=== PATIENT | female | born 1990 | race Caucasian/White ===

== ENCOUNTER → 2018-09-03 | Outpatient (CLI) | payer SELFPAY ==
--- NOTE | 2018-09-03 13:31 | RADIOLOGY REPORT (SQ) ---
EXAM DESCRIPTION: U/S [id number] TRNABD 1GES W/ODOP COMPLETED DATE/TIME: 09/03/2018 1:12 pm REASON FOR STUDY: ENCOUNTER FOR SUPRVSN OF NORMAL , FIRST TRIMESTER Z34.81 ENCOUNTER FOR S UPRVSN OF NORMAL , FIRST TRIM COMPARISON: None. TECHNIQUE: Transabdominal static and realtime grayscale images acquired of the pelvis. Additional se lected spectral and color Doppler images recorded. All images stored on PACs. bHCG: Not available CLINICAL DATES: 05/31/2018 LIMITATIONS: None. FINDINGS: FETUS: Single Living intrauterine . ULTRASOUND EGA: 10 weeks 0 days, estimated due date 04/01/2019 ULTRASOUND KALYN: 04/01/2019 EFW: Not calculated CRL: 3.2 cm FHR: 180 beats per minute. SURVEY: Too early to evaluate AMNIOTIC FLUID: Adequate amount. PLACENTA: Not yet developed due to early gestation. SUBCHORIONIC BLEED: Yes SIZE OF BLEED: 1.4 cm in greatest diameter UTERUS: No masses. No anomalies. Uterus is 11 x 9 x 9 cm in size CERVICAL LENGTH: Closed, 3.2 cm in length. RIGHT ADNEXA: Not visualized due to adnexal bowel gas and limited acoustic window. No adnexal free fluid. No adnexal masses. LEFT ADNEXA: Normal ovary with normal vascular flow. Left ovary 3.7 x 3.1 x 2.2 cm in size. No adnexal free fluid. No adnexal masses. FREE FLUID: None. OTHER: No other significant finding. IMPRESSION: LIVING INTRAUTERINE . EGA 10 weeks 0 day Trimester of : First - 0 to 13 weeks. TECHNICAL DOCUMENTATION: JOB ID: [id number]- All Rights Reserved rev Reading location - IP/workstation name: [email or web address]
== END ==
LOC: RAD 12:45
PROVIDERS: ATTEND Midwife
DX: Z34.81 Encounter for supervision of other normal pregnancy, first trimester (principal)
CPT/HCPCS: 76801

== ENCOUNTER 2019-04-07 08:35 | Inpatient (IN) | payer MEDICAID ==
[2019-04-07] MEDS ORDERED: OXYTOCIN 10 UNIT/ML VIAL ONE ×2 (09:30→17:13)
[2019-04-07] MEDS ORDERED: RINGERS SOLUTION,LACTATED 1,000 ML IV ONE (09:30)
[2019-04-07] MEDS ORDERED: LIDOCAINE 1% INJ-PF (10 MG/ML) 30 ML SDV ONE (09:30)
[2019-04-07] MEDS ORDERED: MISOPROSTOL 0.2 MG TABLET ONE (09:30)
[2019-04-07] MEDS ORDERED: OXYTOCIN/NORMAL SALINE 0 UNIT/0 ML RTUINJ ONE ×2 (09:31→17:14)
[2019-04-07 10:08] LABS: ABSOLUTE LYMPHOCYTES (AUTO) 1.9 10^3/uL (0.5-4.7); ABSOLUTE MONOCYTES (AUTO) 0.6 10^3/uL (0.1-1.4); ABSOLUTE NEUT (AUTO) 8.2 10^3/uL (1.7-8.2); BASOPHILS % (AUTO) 0.4 % (0-2); EOSINOPHILS % (AUTO) 0.2 % (0-6); HEMATOCRIT 37.3 % (36.0-47.0); HEMOGLOBIN 12.7 g/dL (12.0-15.5); LYMPHOCYTES % (AUTO) 17.4 % (13-45); MEAN CORPUSCULAR HEMOGLOBIN 30.9 pg (27.0-33.4); MEAN CORPUSCULAR HGB CONC 34.2 g/dL (32.0-36.0); MEAN CORPUSCULAR VOLUME 90 fl (80-97); MONOCYTES % (AUTO) 5.8 % (3-13); PLATELET COUNT 162 10^3/uL (150-450); RED BLOOD COUNT 4.13 10^6/uL (3.72-5.28); RED CELL DISTRIBUTION WIDTH 14.4 % (11.5-14.0); SEGMENTED NEUTROPHILS % (AUTO) 76.2 % (42-78); TOTAL CELLS COUNTED % (AUTO) 100 %; WHITE BLOOD COUNT 10.7 10^3/uL (4.0-10.5)
--- NOTE | 2019-04-07 10:54 | Admission Physical ---
Datetime Report Generated by CPN: 04/07/2019 10:53 CURRENT ADMISSION Chief Complaint: Uterine Contractions Indication for Induction: Not Applicable Admit Impression : Term, Intrauterine Admit Plan: Admit to Unit; Initiate Labor Protocol OBSTETRICAL HISTORY EDC: 04/01/2019 00:00 : 3 Para: 2 Term: 1 : 1 SAB: 0 IAB: 0 Ectopic: 0 Livin Cesareans: 0 VBACs: 0 Multiple Births: 0 Gestational Diabetes: No Rh Sensitization: No Incompetent Cervix: No BRIGIDA: No Infertility: No ART Treatment: No Uterine Anomaly: No IUGR: No Hx Previous C/S: No Macrosomia: No Hx Loss/Stillborn: Yes PIH: No Hx : No Placenta Previa/Abruption: No Depression/PP Depression: No PTL/PROM: No Post Hemorrhage: No Current Procedures: Ultrasound; NST Obstetrical History Comments: G1- 38 wks viable baby boy 8 pounds 11 ounces G2- 35 wks induces demise G3- Current SEE RECORDS Alcohol: No Marijuana : No Cocaine: No Other Illicit Drugs: No Cigarettes: Never Smoker. 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: No Heart Disease: No Hosp/Surgery: Yes Autoimmune Disorder: No Anesthetic Complications: No Kidney Disease: No Abnormal Pap Smear: No Neuro/Epilepsy: No Psychiatric Disorders: No Other Medical Diseases: No Hepatitis/Liver Disease: No Significant Family History: No Varicosities/Phlebitis: No Trauma/Violence : No Thyroid Dysfunction: No INFECTIOUS HISTORY Gonorrhea: No Genital Herpes: No Chlamydia: No Tuberculosis: No Syphilis: No Hepatitis: No HIV/AIDS Exposure: No Rash or Viral Illness: No HPV: No PHYSICAL EXAM General: Normal HEENT: Normal Neurologic: Normal Thyroid: Deferred Heart: Normal Lungs: Normal Breast: Deferred Back: Normal Abdomen: Normal Genitourinary Exam: Normal Extremities: Normal DTRs: Deferred Pelvic Type: Adequate Vital Signs: Reviewed; Within Normal Limits VAGINAL EXAM Dilatation: 8 Effacement: 100 Station: -1 Contraction Comments: q 1-2 mins MEMBRANES Pooling: Negative Membranes: Bulging FETUS A EGA: 40.6 Monitoring: External US FHR- Baseline: 135 Variability: Moderate 6-25bpm Accelerations: 15X15 Decelerations: Early FHR Category: Category I Estimated Weight (gm): 3300 Presentation: Vertex Admit Comment: at 40+6wega with hx stillborn . c/o contractions. GBS neg, admitted for inpatient, AROM for brown meconium. nursery notified. P: routine labor care, anticipate PLANS FOR LABOR AND DELIVERY Labor and Delivery: None Pain Management: None Feeding Preference: Breast Benefit of Breast Feed Discussed: Yes Circumcision: No INFORMED CONSENT Assignment: Asa Jimenes MD Signature: with User ID: [email or web address] : with User ID: [email or web address]
[2019-04-07] MEDS ORDERED: EPHEDRINE SULFATE INJ 50 MG/1 ML AMPULE ONE ×2 (11:39→17:13)
[2019-04-07] MEDS ORDERED: FENTANYL/BUPIVACAINE/NS/PF 300 MCG/150 ML RTUINJ EPI ONE (11:40)
[2019-04-07] MEDS ORDERED: BUPIVACAINE HCL 0.25 % INJ/PF (2.5 MG/1 ML) 30 ML VIAL ONE (11:40)
[2019-04-07] MEDS ORDERED: LIDOCAINE 2% INJ-PF (20 MG/ML) 10 ML AMPUL ONE (16:57)
[2019-04-07] MEDS ORDERED: CITRIC ACID/SODIUM CITRATE ORAL SOLN 15 ML UDCUP ONE (17:04)
[2019-04-07] MEDS ORDERED: CEFAZOLIN INJ 1 GM VIAL ONE (17:04)
[2019-04-07] MEDS ORDERED: KETOROLAC TROMETHAMINE INJ/PF 30 MG/1 ML SDV ONE (17:13)
[2019-04-07] MEDS ORDERED: FENTANYL CITRATE INJ/PF 100 MCG/2 ML AMPUL ONE ×2 (17:13→17:59)
[2019-04-07] MEDS ORDERED: MIDAZOLAM 2 MG/2 ML INJ ONE (17:13)
[2019-04-07] MEDS ORDERED: ONDANSETRON HCL INJ/PF 4 MG/2 ML SDV ONE (17:14)
[2019-04-07] MEDS ORDERED: ACETAMINOPHEN 1,000 MG/100 ML RTUPB IV ONE (17:48)
[2019-04-07] MEDS ORDERED: BUPIVACAINE HCL 0.5 % INJ/PF 30 ML SDV ONE (18:02)
[2019-04-07] MEDS ORDERED: PROPOFOL INJ 200 MG/20 ML VIAL IV ONE (18:10)
[2019-04-07] MEDS ORDERED: PHENYLEPHRINE HCL INJ/PF 10 MG/1 ML SDV ONE (18:15)
[2019-04-07] MEDS ORDERED: OXYTOCIN/NORMAL SALINE 20 UNIT/1,000 ML RTUINJ IV PRN (18:40)
[2019-04-07] MEDS ORDERED: DIPH/PERTUSS(ACELL)/TETANUS VAC/PF 0.5 ML SYR (>=10YO) IM PRN (18:40)
[2019-04-07] MEDS ORDERED: MEASLES,MUMPS&RUBELLA VACC/PF 0.5 ML VIAL SUBCUT PRN (18:40)
[2019-04-07] MEDS ORDERED: OXYCODONE-ACETAMINOPHEN 5-325 MG TABLET PO PRN (18:40)
[2019-04-07] MEDS ORDERED: PROMETHAZINE HCL INJ 25 MG/1 ML VIAL IV PRN (18:40)
[2019-04-07] MEDS ORDERED: RINGERS SOLUTION,LACTATED 1,000 ML IV PRN (18:40)
[2019-04-07] MEDS ORDERED: SIMETHICONE 80 MG TAB.CHEW PO PRN (18:40)
[2019-04-07] MEDS ORDERED: ACETAMINOPHEN 325 MG TABLET PO PRN (18:40)
[2019-04-07] MEDS ORDERED: ACETAMINOPHEN 1,000 MG/100 ML RTUPB IV PRN (18:40)
--- NOTE | 2019-04-07 18:49 | Operative Report ---
Operative Report DATE OF SURGERY: 04/07/19 PREOPERATIVE DIAGNOSIS: Obstructed labor with cephalopelvic disproportion persi stent OP presentation POSTOPERATIVE DIAGNOSIS: Same OPERATION: Primary via low transverse uterine incision SURGEON: ALAN MUKHERJEE 1ST SAFETY SCIENTIST: TINO HENRY ANESTHESIA: Epidural TISSUE REMOVED OR ALTERED: Placenta COMPLICATIONS: Obstructed labor with very edematous vulva. The Moore placement was accomplished by elevating the head. Also there was a extension of the incision to the left with bleeding from the left uterine artery. ESTIMATED BLOOD LOSS: 800 cc INTRAOPERATIVE FINDINGS: Viable male crying at delivery. Very thick meconium. PROCEDURE: Patient was taken to the OR and placed in supine position after her epidural anesthesia. She is prepared and draped in sterile fashion. Moore was placed for drainage of the bladder. The head was elevated in the pelvis so that the Moore catheter could be inserted. The urine was quite bloody at this point prior to the case. Low transverse incision was made and carried down the level of the fascia. The fascial incision was made with knife and extended bilaterally with curved Cash scissors. The fascia was off the rectus muscles using sharp and blunt dissection. The rectus muscles are in the midline. The peritoneum was entered without incident. Bladder blade was placed in uterine segment was identified. A low transverse incision was made c reating a bladder flap. Bladder blade was placed low transverse uterine incision was made with the knife and extended with fingertips. The baby was delivered with some fundal pressure as well as the assistance of a vaginal hand. The baby was noted to be directly OP and quite large.. Mouth and nose were suctioned free. The cord is doubly clamped and cut. Baby is passed off to the brim ironer hand in attendance. The placenta was manually extracted with trailing membranes. The uterus was externalized wrapped in a moist lap sponge. Uterine contents wiped free. There was bleeding from several branches of the left uterine artery. These were grasped individually with hemostats and individually tied off. The suture used was 0 chromic. Once hemostasis was obtained we proceeded with closure of the uterus. Uterus was closed with a running locking layer of 0 chromic suture using the second layer to imbricate the first completing a double layer closure of the uterus. The serosa was closed with a running 2-0 chromic stitch. The pelvis was irrigated and suctioned free of fluid the uterus was replaced in the abdomen. The pelvis was hemostatic upon exam with the uterus in situ. The abdominal wall peritoneum was closed with running 2-0 chromic stitch. Fascia was closed with a running 0 Vicryl in 2 segments. Jaun's layer was brought together with 0 plain gut stitch and the skin was closed with running subcuticular 4-0 undyed Vicryl stitch. The wound was dressed mother and baby did well.
--- NOTE | 2019-04-07 19:11 | RADIOLOGY REPORT (SQ) ---
EXAM DESCRIPTION: KUB/ABDOMEN (SINGLE VIEW) COMPLETED DATE/TIME: 04/07/2019 6:50 pm REASON FOR STUDY: look for needles COMPARISON: None. NUMBER OF VIEWS: One view. TECHNIQUE: Supine radiographic image of the abdomen acquired. LIMITATIONS: None. FINDINGS: BOWEL GAS PATTERN: Paucity of bowel gas within the central and lower abdomen. Gas and sto ol with within nondistended large bowel at the upper abdomen. CALCIFICATIONS: No suspicious calcifications. SOFT TISSUES: No gross mass or suggestion of organomegaly. HARDWARE: No metallic foreign body identified. Catheter projects over the central pelvis. BONES: No acute fracture. No worrisome bone lesions. OTHER: No other significant finding. IMPRESSION: No metallic foreign bodies identified. TECHNICAL DOCUMENTATION: JOB ID: [id number] [employer]- All Rights Reserved Reading location - IP/workstation name: [email or web address]
[2019-04-07] MEDS ORDERED: NORMAL SALINE 250 ML IV PRN (19:46)
[2019-04-07 20:21] LABS: INTERNATIONAL RATION (INR) 1.11; PROTHROMBIN TIME 14.3 SEC (11.4-15.4)
[2019-04-07 20:22] LABS: PARTIAL THROMBOPLASTIN TIME 29.1 SEC (23.5-35.8)
[2019-04-07 20:23] LABS: MEAN CORPUSCULAR HEMOGLOBIN 30.9 pg (27.0-33.4); MEAN CORPUSCULAR HGB CONC 33.7 g/dL (32.0-36.0); MEAN CORPUSCULAR VOLUME 92 fl (80-97); PLATELET COUNT 156 10^3/uL (150-450); RED BLOOD COUNT 3.17 10^6/uL (3.72-5.28); RED CELL DISTRIBUTION WIDTH 14.3 % (11.5-14.0); WHITE BLOOD COUNT 15.8 10^3/uL (4.0-10.5)
[2019-04-07 20:25] LABS: HEMOGLOBIN 9.8 g/dL (12.0-15.5)
[2019-04-07] MEDS: MEPERIDINE HCL/PF INJ 25 MG/1 ML DISP.SYRIN ONE ×2 (20:33→20:42)
[2019-04-07] MEDS: MORPHINE SULFATE 10 MG/ML INJ ONE ×2 (20:33→20:41)
--- NOTE | 2019-04-07 20:41 | Delivery Summary ---
Del Sum A-C Datetime Report Generated by CPN: 04/07/2019 20:40 DELIVERY PERSONNEL DELIVERY PERSONNEL: [id number] Delivery Doctor:: Asa Jimenes MD Anesthesiologist:: Tereso Larios MD HOT TAR ROOFER:: Raji Vogel CRNA Labor and Delivery Nurse:: Sun [place] RNfairing worker Nurse:: Giulia Richardson RN Child Care Assistant:: Sun Nam RN [employer] Attendant:: Dr. Meet Sloan Nursery Nurse:: Jovanna FERNANDEZ RN Director Industrial Museum/MULTICULTURAL MANAGER: ST Neha Director Industrial Museum/MULTICULTURAL MANAGER: Hannah Ortiz, DRIER BELT CONVEYOR MATERNAL INFORMATION Delivery Anesthesia: Epidural Medications After Delivery: Pitocin Bolus-Please Comment; Pitocin Drip 20 Units/1000ml NSS Estimated Blood Loss (ml): 1100 Delivery QBL: 2320 Maternal Complications: None LABOR SUMMARY EDC: 04/01/2019 00:00 No. Babies in Womb: 1 Attempted: No Labor Anesthesia: Epidural LABOR INFORMATION Reason for Induction: Not Applicable Onset of Labor: 04/07/2019 05:00 Complete Dilatation: 04/07/2019 13:56 Oxytocin: N/A Group B Beta Strep: Negative Antibiotics # of Doses: 0 Antibiotics Time of Last Dose: n/a Name of Antibiotic Given: n/a Steroids Given: None Reason Steroids Not Administered: Not Applicable MEMBRANES Membranes Rupture Method: Artificial Rupture of Membranes: 04/07/2019 09:57 Length of Rupture (hr): 7.65 Amniotic Fluid Color: Moderate Meconium Amniotic Fluid Amount: Small Amniotic Fluid Odor: Normal STAGES OF LABOR Stage 1 hr: 8 Stage 1 min: 56 Stage 2 hr: 3 Stage 2 min: 40 Stage 3 hr: 0 Stage 3 min: 0 Total Time in Labor hr: 12 Total Time in Labor min: 36 VAGINAL DELIVERY Episiotomy: None Laceration #1: None Laceration Extension #1: N/A Laceration Repair: Not Applicable Sponge Count Correct: N/A Sharps Count Correct: N/A CSECTION DELIVERY Primary Indication: Failure of Descent Secondary Indication: Nonreassuring Status CSection Urgency: Non-Scheduled CSection Incidence: Primary Labor: Labor Elective: N/A CSection Incision: Lower Uterine Transverse BABY A INFORMATION Delivery Date/Time: 04/07/2019 17:36 Method of Delivery: Born in Route : No : N/A Forceps: N/A Vacuum Extraction: N/A Shoulder Dystocia : No PRESENTATION/POSITION BABY A Presentation: Cephalic Cephalic Presentation: Vertex Breech Presentation: N/A PLACENTA INFORMATION BABY A Placenta Delivery Time : 04/07/2019 17:36 Placenta Method of Delivery: Manual Removal Placenta Status: Delivered SCORES BABY A Heart Rate 1 min: >100 bpm Resp Effort 1 min: Good Cry Reflex Irritability 1 min: Grimace Muscle Tone 1 min: Some Flexion of Extremities Color 1 min: Blue/Pale SCORE 1 MIN: 6 Heart Rate 5 min: >100 bpm Resp Effort 5 min: Good Cry Reflex Irritability 5 min: Grimace Muscle Tone 5 min: Some Flexion of Extremities Color 5 min: Body [place], Extremities Blue SCORE 5 MIN: 7 Heart Rate 10 min: >100 bpm Resp Effort 10 min: Good Cry Reflex Irritability 10 min: Cough or Sneeze or Pulls Away Muscle Tone 10 min: Some Flexion of Extremities Color 10 min: Body [place], Extremities Blue SCORE 10 MIN: 8 INFORMATION BABY A Gestational Age at Delivery: 40.6 Gestational Status: Full Term- 39- 40.6 Weeks Infant Outcome : Liveborn Infant Condition : Stable Infant Sex: Male IDENTIFICATION BABY A Infant Verification Date/Time: 04/07/2019 17:38 ID Band Number: [id number] Mother's Name Verified: Yes Infant RN Verifying Infant: R MARKAITYFKA, RN/ C JUAREZ, RN WEIGHT/LENGTH BABY A Birthweight (gm): 4355 Infant Weight (lb): 9 Weight (oz): 10 Infant Length (in): 23.00 Infant Length (cm): 58.42 CORD INFORMATION BABY A No. Cord Vessels: 3 Nuchal Cord : N/A Cord Blood Taken: Yes-For Storage (Mom's Blood type +) ASSESSMENT BABY A Complications: Extended Tachycardia; Meconium Skin to Skin: No Care By: see delivery summary Transferred To: Nursery BABY B INFORMATION : N/A SIGNATURES : I was personally available for consultation and serving as supervising physician for the MLP.
[2019-04-07] MEDS: OXYCODONE-ACETAMINOPHEN 5-325 MG TABLET PO PRN (22:27)
[2019-04-07] MEDS: HYDROMORPHONE HCL INJ/PF 2 MG/ML AMPULE IV PRN (23:54)
[2019-04-08] MEDS ORDERED: MISOPROSTOL 0.2 MG TABLET ONE (00:06)
[2019-04-08] MEDS ORDERED: MISOPROSTOL 0.2 MG TABLET PO ONE (01:00)
[2019-04-08] MEDS: OXYCODONE-ACETAMINOPHEN 5-325 MG TABLET PO PRN ×2 (02:23→15:12)
[2019-04-08] MEDS ORDERED: INFLUENZA QUAD (6MOS+) 2019-20 VAC 0.5 ML SYR IM ONE (04:30)
[2019-04-08] MEDS: HYDROMORPHONE HCL INJ/PF 2 MG/ML AMPULE IV PRN ×4 (05:24→19:41)
[2019-04-08] MEDS: MISOPROSTOL 0.2 MG TABLET PO SCH ×2 (06:13→12:19)
[2019-04-08 07:10] LABS: HEMATOCRIT 32.2 % (36.0-47.0); HEMOGLOBIN 10.9 g/dL (12.0-15.5); MEAN CORPUSCULAR HEMOGLOBIN 29.7 pg (27.0-33.4); MEAN CORPUSCULAR HGB CONC 33.9 g/dL (32.0-36.0); PLATELET COUNT 115 10^3/uL (150-450); RED BLOOD COUNT 3.67 10^6/uL (3.72-5.28); RED CELL DISTRIBUTION WIDTH 16.6 % (11.5-14.0); WHITE BLOOD COUNT 13.4 10^3/uL (4.0-10.5)
[2019-04-08 07:24] LABS: MEAN CORPUSCULAR VOLUME 88 fl (80-97)
[2019-04-08] MEDS: DOCUSATE SODIUM 100 MG CAPSULE PO SCH ×2 (10:20→17:23)
[2019-04-08] MEDS: PRENATAL VITAMIN W DHA CAPSULE PO SCH (10:20)
--- NOTE | 2019-04-08 10:57 | PDOC PROGRESS REPORT ---
Subjective-OB Progress Note for:: 04/08/19 Subjective: Pt is resting quietly, at bedside. She has not been out of bed, denies flatus. FC to bsd with clear yellow urine. No complaints of pain, was recently given Dilaudid per RN. Physical Exam (OB) Vital Signs: Temp Pulse Resp BP Pulse Ox 98.5 F 90 16 102/64 97 04/08/19 07:48 04/08/19 09:33 04/08/19 07:48 04/08/19 09:33 04/08/19 09:33 Intake & Output 04/07/19 04/08/19 04/09/19 06:59 06:59 06:59 Intake Total 1300 Output Total 1705 31 Balance -405 -31 - PIH/Pre-Eclampsia Clonus: Negative Headache: Absent Epigastric Pain: No Visual Changes: No - Dressing Removed: No Incision: Dressing Closure Type: Sutures - Lochia Lochia Amount: Moderate 25-50 ml Lochia Color: Rubra/Red - Abdomen Description: Tender, Soft Hernia Present: No Fundal Description: Firm Fundal Height: u/u - u/2 - Genitourinary Genitourinary Note: moderate to severe edema of labia majora, has ice on it Objective-Diagnostic Laboratory: 04/08/19 07:00 04/07/19 04/07/19 04/08/19 09:55 20:01 07:00 WBC 15.8 H 13.4 H RBC 3.17 L 3.67 L Hgb 9.8 L D 10.9 L Hct 29.0 L 32.2 L MCV 92 88 D MCH 30.9 29.7 MCHC 33.7 33.9 RDW 14.3 H 16.6 H Plt Count 156 115 L Blood Type A POSITIVE Antibody Screen NEGATIVE Assessment and Plan(PN) - Assessment and Plan (1) Anemia due to acute blood loss Is this a current diagnosis for this admission?: Yes (2) delivery delivered Is this a current diagnosis for this admission?: Yes (3) Failure to progress in labor Is this a current diagnosis for this admission?: Yes (4) hemorrhage Qualifiers: hemorrhage type: unspecified Qualified Code(s): O72.1 - Other immediate hemorrhage Is this a current diagnosis for this admission?: Yes - Time Spent with Patient Time with patient: Less than 15 minutes Medications reviewed and adjusted accordingly: Yes - Disposition Anticipated Discharge: Home Within: within 24 hours
[2019-04-09] MEDS: OXYCODONE-ACETAMINOPHEN 5-325 MG TABLET PO PRN ×3 (04:12→16:49)
--- NOTE | 2019-04-09 10:51 | PDOC DISCHARGE SUMMARY ---
Impression - Admit/DC Date/PCP Admission Date/Primary Care Provider: 04/07/19 09:08 ALAN MUKHERJEE MD Discharge Date: 04/09/19 - Discharge Diagnosis (1) Anemia due to acute blood loss Is this a current diagnosis for this admission?: Yes (2) delivery delivered Is this a current diagnosis for this admission?: Yes (3) Failure to progress in labor Is this a current diagnosis for this admission?: Yes (4) hemorrhage Is this a current diagnosis for this admission?: Yes - Additional Information Resuscitation Status: Full Code Discharge Diet: Regular Referrals: [facility] [Provider Group] Prescriptions: Oxycodone HCl/Acetaminophen [Percocet 5-325 mg Tablet] 1 tab PO Q4HP PRN #30 tablet PRN Reason: Docusate Sodium [Colace 100 mg Capsule] 100 mg PO BID #60 capsule Cephalexin [Keflex] 500 mg PO BID #20 capsule Home Medications: Vits96/Iron Fum/Folic [ Tablet] 1 each PO DAILY 04/07/19 Cephalexin [Keflex] 500 mg PO BID #20 capsule 04/09/19 Docusate Sodium [Colace 100 mg Capsule] 100 mg PO BID #60 capsule 04/09/19 Oxycodone HCl/Acetaminophen [Percocet 5-325 mg Tablet] 1 tab PO Q4HP PRN #30 tablet 04/09/19 Results Laboratory Results: WBC 13.4 10^3/uL (4.0-10.5) H 04/08/19 07:00 RBC 3.67 10^6/uL (3.72-5.28) L 04/08/19 07:00 Hgb 10.9 g/dL (12.0-15.5) L 04/08/19 07:00 Hct 32.2 % (36.0-47.0) L 04/08/19 07:00 MCV 88 fl (80-97) D 04/08/19 07:00 MCH 29.7 pg (27.0-33.4) 04/08/19 07:00 MCHC 33.9 g/dL (32.0-36.0) 04/08/19 07:00 RDW 16.6 % (11.5-14.0) H 04/08/19 07:00 Plt Count 115 10^3/uL (150-450) L 04/08/19 07:00 Lymph % (Auto) 17.4 % (13-45) 04/07/19 09:55 Greer % (Auto) 5.8 % (3-13) 04/07/19 09:55 Eos % (Auto) 0.2 % (0-6) 04/07/19 09:55 Baso % (Auto) 0.4 % (0-2) 04/07/19 09:55 Absolute Neuts (auto) 8.2 10^3/uL (1.7-8.2) 04/07/19 09:55 Absolute Lymphs (auto) 1.9 10^3/uL (0.5-4.7) 04/07/19 09:55 Absolute Monos (auto) 0.6 10^3/uL (0.1-1.4) 04/07/19 09:55 Absolute Eos (auto) 0.0 10^3/uL (0.0-0.6) 04/07/19 09:55 Absolute Basos (auto) 0.0 10^3/uL (0.0-0.2) 04/07/19 09:55 Seg Neutrophils % 76.2 % (42-78) 04/07/19 09:55 PT 14.3 SEC (11.4-15.4) 04/07/19 20:01 INR 1.11 04/07/19 20:01 APTT 29.1 SEC (23.5-35.8) 04/07/19 20:01 RPR NONREACTIVE (NONREACTIVE) 04/07/19 09:55 Blood Type A POSITIVE 04/07/19 09:55 Blood Type Confirm A POSITIVE 04/07/19 20:01 Antibody Screen NEGATIVE 04/07/19 09:55 Crossmatch See Detail 04/07/19 09:55 Impressions: KUB X-Ray 04/07/19 18:27 IMPRESSION: No metallic foreign bodies identified.
[2019-04-09] MEDS: PRENATAL VITAMIN W DHA CAPSULE PO SCH (10:59)
[2019-04-09] MEDS: DOCUSATE SODIUM 100 MG CAPSULE PO SCH (10:59)
[2019-04-09 16:28] VITALS: BP 106/71
== END 2019-04-09 18:10 | disposition home or self-care (01) | DRG 787 ==
LOC: LC 08:35 → LR 09:08 → 2S 21:24
PROVIDERS: ADMIT Obstetrics & Gynecology; ATTEND Obstetrics & Gynecology
PROC: 10D00Z1 Extraction of Products of Conception, Low, Open Approach (ICD-10-PCS; principal; 2019-04-07)
DX: O64.0XX0 Obstructed labor due to incomplete rotation of fetal head, not applicable or unspecified (principal); D62 Acute posthemorrhagic anemia; O72.1 Other immediate postpartum hemorrhage; O90.81 Anemia of the puerperium; O76 Abnormality in fetal heart rate and rhythm complicating labor and delivery; Z3A.40 40 weeks gestation of pregnancy; Z37.0 Single live birth
CPT/HCPCS: 1961; 36415; 36430; 59025; 74018; 85025; 85027; 85610; 85730; 86592; 86850; 86900; 86901; 86920; 90686; 94760; 94799; J0131; J0690; J1170; J1885; J2175; J2250; J2270; J2370; J2405; J2590; J2704; J3010; J3490; J7120; P9016